=== PATIENT | female | born 1990 | race Caucasian/White ===

== ENCOUNTER 2017-09-26 06:56 | Inpatient (IN) | payer OTHER ==
[2017-09-26] MEDS ORDERED: Misoprostol 100 MCG Tab VAG ONE (07:12)
[2017-09-26] MEDS ORDERED: Misoprostol 25 MCG (1/4 of 100 MCG) Tab ONE (07:28)
[2017-09-26] MEDS ORDERED: Sodium Chloride 0.9% 10 ML Syringe FLUSH PRN (12:00)
[2017-09-26] MEDS: Lactated Ringers 1,000 ML IV SCH ×2 (13:05→21:08)
--- NOTE | 2017-09-26 20:31 | PCM.LDHP ---
L&D History of Present Illness - General Date of Service: 09/26/17 Admit Problem/Dx: Patient Status Order with Admit Dx/Problem 09/26/17 07:00 Admission Status [Patient Status] [ADT] Routine Admission Diagnosis/Problem Admission Diagnosis/Problem - History of Present Illness Introduction:: 26 yo primigravida admitted for induction of labor.No contractions.She is 40w5d.Unremarkable . 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 L&D Exam - Exam Exam: See Below - Vital Signs Vital Signs: Last Vital Signs Temp 98 F 09/26/17 07:20 Pulse 66 09/26/17 16:37 Resp 18 09/26/17 14:15 BP 128/77 09/26/17 16:17 Pulse Ox 99 09/26/17 07:12 Weight: 77.111 kg - OB Specific Contraction Duration (sec): 40-70 Contraction Frequency (min): 1-3 Contraction Intensity: Mild - Bunn Score Bunn Score Cervix Position: Posterior Bunn Score Consistency: Soft Bunn Score Effacement: 0-30% Bunn Score Dilation: 1-2 cm Bunn Score 's Station: -1 ,0 Bunn Score Total: 5 - Exam General: Alert, Oriented HEENT: PERRLA, Conjunctiva Clear, EACs Clear, EOMI, Hearing Intact, Mucosa Moist & [place], Nares Patent, Normal Nasal Septum, Posterior Pharynx Clear, TMs Clear Neck: Supple, Trachea Midline Lungs: Clear to Auscultation, Normal Respiratory Effort Cardiovascular: Regular Rate, Regular Rhythm GI/Abdominal Exam: Normal Bowel Sounds, Soft, Non-Tender, No Organomegaly, No Distention, No Abnormal Bruit, No Mass, Pelvis Stable Rectal Exam: Normal Exam, Normal Rectal Tone Genitourinary: Normal external exam, Normal bimanual exam, Normal speculum exam Back Exam: Normal Inspection, Full Range of Motion Extremities: Normal Inspection, Normal Range of Motion, Non-Tender, No Pedal Edema, Normal Capillary Refill Skin: Warm, Dry, Intact Neurological: Cranial Nerves Intact, Reflexes Equal Bilateral Psychiatric: Alert, Normal Affect, Normal Mood - Problem List (1) Term SNOMED Code(s): 77494266 ICD Code: Z34.80 - ENCOUNTER FOR SUPRVSN OF NORMAL , UNSP TRIMESTER Status: Acute Current Visit: Yes (2) Post term at 41 weeks gestation SNOMED Code(s): 596994111 ICD Code: O48.0 - POST-TERM ; Z3A.41 - 41 WEEKS GESTATION OF Status: Acute Current Visit: Yes (3) Encounter for induction of labor SNOMED Code(s): 584353525 ICD Code: Z34.90 - ENCNTR FOR SUPRVSN OF NORMAL , UNSP, UNSP TRIMESTER Status: Acute Current Visit: Yes Problem List Initiated/Reviewed/Updated: Yes Orders Last 24hrs: Active Orders 24 hr Category Date Time Status Admission Status [Patient Status] [ADT] Routine ADT 09/26/17 07:00 Active Communication Order [RC] ASDIRECTED Care 09/26/17 07:12 Active Communication Order [RC] ASDIRECTED Care 09/26/17 07:12 Active Communication Order [RC] ASDIRECTED Care 09/26/17 07:12 Active Communication Order [RC] ASDIRECTED Care 09/26/17 07:12 Active Communication Order [RC] ROUTINE Care 09/26/17 07:12 Active Notify Provider [RC] PRN Care 09/26/17 07:12 Active Notify Provider [RC] STAT Care 09/26/17 07:12 Active Notify Provider [RC] STAT Care 09/26/17 12:00 Active Vital Signs [RC] PER UNIT ROUTINE Care 09/26/17 07:12 Active Lactated Ringers [Ringers, Lactated] 1,000 ml Med 09/26/17 12:00 Active IV ASDIRECTED Oxytocin/Normal Saline [Pitocin in NS 20 Units/1,000 ML Med 09/26/17 12:00 Active ] 20 unit in 1,000 ml IV TITRATE Sodium Chloride 0.9% [Saline Flush] Med 09/26/17 12:00 Active 10 ml FLUSH ASDIRECTED PRN Peripheral IV Insertion Adult [OM.PC] Urgent Oth 09/26/17 12:00 Ordered Medication Orders Lactated Ringer's (Ringers, Lactated) 1,000 mls @ 125 mls/hr IV ASDIRECTED CHAD Last Admin: 09/26/17 13:05 Dose: 125 mls/hr Oxytocin/Sodium Chloride (Pitocin In Ns 20 Units/1,000 Ml) 20 unit in 1,000 mls @ 6 mls/hr IV TITRATE CHAD; Protocol Last Titration: 09/26/17 20:10 Dose: 10 munits/min, 30 mls/hr Titration: 09/26/17 19:02 Dose: 8 munits/min, 24 mls/hr Titration: 09/26/17 16:35 Dose: 7 munits/min, 21 mls/hr Titration: 09/26/17 16:15 Dose: 8 munits/min, 24 mls/hr Titration: 09/26/17 13:40 Dose: 4 munits/min, 12 mls/hr Admin: 09/26/17 13:05 Dose: 2 munits/min, 6 mls/hr Sodium Chloride (Saline Flush) 10 ml FLUSH ASDIRECTED PRN PRN Reason: Keep Vein Open Last Admin: 09/26/17 13:07 Dose: 10 ml Assessment/Plan Comment:: Cytotec inductionof labor then augment with Pit
[2017-09-27] MEDS ORDERED: Misoprostol 25 MCG (1/4 of 100 MCG) Tab VAG ONE (07:30)
[2017-09-27] MEDS: Lactated Ringers 1,000 ML IV SCH ×3 (12:37→22:20)
--- NOTE | 2017-09-27 20:03 | PCM.PNLD ---
Labor Progress Note - VS & Meds Vital Signs: Last Vital Signs Temp 98 F 09/27/17 19:29 Pulse 55 L 09/27/17 19:30 Resp 18 09/27/17 08:00 BP 132/85 09/27/17 19:30 Pulse Ox 98 09/27/17 18:50 Active Medications: Current Medications Lactated Ringer's (Ringers, Lactated) 1,000 mls @ 125 mls/hr IV ASDIRECTED CHAD Last Admin: 09/27/17 14:28 Dose: 125 mls/hr Oxytocin/Sodium Chloride (Pitocin In Ns 20 Units/1,000 Ml) 20 unit in 1,000 mls @ 6 mls/hr IV TITRATE CHAD; Protocol Last Titration: 09/27/17 16:52 Dose: 8 munits/min, 24 mls/hr Sodium Chloride (Saline Flush) 10 ml FLUSH ASDIRECTED PRN PRN Reason: Keep Vein Open Last Admin: 09/26/17 13:07 Dose: 10 ml Discontinued Medications Misoprostol (Cytotec) 25 mcg VAG ONETIME ONE Stop: 09/26/17 07:13 Last Admin: 09/26/17 07:53 Dose: 25 mcg Misoprostol (Cytotec) Confirm Administered Dose 25 mcg .ROUTE .STK-MED ONE Stop: 09/26/17 07:29 Last Admin: 09/26/17 07:53 Dose: Not Given Misoprostol (Cytotec) 25 mcg VAG ONETIME ONE Stop: 09/27/17 07:31 Last Admin: 09/27/17 08:24 Dose: 25 mcg - Uterine Contractions Uterine Monitoring Mode: External [place] Contraction Frequency (min): 2-3 Contraction Duration (sec): 80-100 Contraction Intensity: Moderate Uterine Resting Tone: Soft - Monitoring Heart Rate (FHR) Variability: Moderate (6-25 bmp) Accelerations: Present, 15x15 Decelerations: None Strip Review: Category I - Vaginal Exam Dilation (cm): 4 Effacement (Percent): 50 Station: 0 Cervical Position: Midposition Sterile Vaginal Exam Performed By: Pritesh Batista - Labor Progress (Free Text) Labor Progress: AROM performed. Will continue with augmentation of labior by Pitocin
[2017-09-27] MEDS: Nalbuphine 10 MG/1 ML Vial IVPUSH PRN (23:21)
[2017-09-28] MEDS: Nalbuphine 10 MG/1 ML Vial IVPUSH PRN (02:13)
[2017-09-28] MEDS: Lactated Ringers 1,000 ML IV SCH ×2 (03:16→08:57)
[2017-09-28] MEDS ORDERED: fentaNYL 300 MCG in Ropivacaine 200 ML EPIDUR ONE (03:40)
[2017-09-28] MEDS ORDERED: fentaNYL 100 MCG/2 ML SDV EPIDUR ONE ×2 (03:40→10:30)
[2017-09-28] MEDS ORDERED: Promethazine 6.25 MG in Sodium Chloride 0.9% 50 ML IV PRN (04:55)
[2017-09-28] MEDS ORDERED: diphenhydrAMINE 50 MG/ML SDV IV PRN (04:55)
[2017-09-28] MEDS ORDERED: Ondansetron 4 MG/2 ML SDV IVPUSH PRN (04:55)
[2017-09-28] MEDS ORDERED: Promethazine 12.5 MG in Sodium Chloride 0.9% 50 ML IV PRN (04:55)
[2017-09-28] MEDS ORDERED: ePHEDrine 50 MG/ML SDV IVPUSH ONE (04:55)
[2017-09-28] MEDS ORDERED: Naloxone 0.4 MG/ML SDV IVPUSH PRN (04:55)
[2017-09-28] MEDS ORDERED: Lactated Ringers 500 ML IV SCH (05:00)
[2017-09-28] MEDS ORDERED: Citric Acid/Sodium Citrate Solution 30 ML Cup PO ONE (09:45)
[2017-09-28] MEDS ORDERED: Scopolamine 1.5 MG Transdermal Patch TRDERM ONE (09:46)
[2017-09-28] MEDS ORDERED: ceFAZolin 1,000 MG VIAL IVPUSH ONE (10:06)
[2017-09-28] MEDS ORDERED: Azithromycin 500 MG in Sodium Chloride 0.9% 250 ML IV ONE ×2 (10:06→10:30)
--- NOTE | 2017-09-28 10:10 | PCM.PNLD ---
Labor Progress Note - VS & Meds Vital Signs: Last Vital Signs Temp 98.6 F 09/28/17 04:00 Pulse 73 09/27/17 23:21 Resp 16 09/28/17 04:00 BP 149/90 H 09/27/17 23:05 Pulse Ox 99 09/28/17 04:55 Active Medications: Current Medications Cefazolin Sodium (Ancef) 2,000 mg IVPUSH ONETIME ONE Stop: 09/28/17 10:07 Diphenhydramine HCl (Benadryl) 25 mg IV ONETIME PRN PRN Reason: Pruritus Lactated Ringer's (Ringers, Lactated) 1,000 mls @ 125 mls/hr IV ASDIRECTED CHAD Last Admin: 09/28/17 08:57 Dose: 125 mls/hr Oxytocin/Sodium Chloride (Pitocin In Ns 20 Units/1,000 Ml) 20 unit in 1,000 mls @ 6 mls/hr IV TITRATE CHAD; Protocol Last Titration: 09/28/17 08:50 Dose: 4 munits/min, 12 mls/hr Lactated Ringer's (Ringers, Lactated) 500 mls @ 999 mls/hr IV .BOLUS CHAD Promethazine HCl 6.25 mg/ (Sodium Chloride) 50.25 mls @ 200 mls/hr IV Q4H PRN PRN Reason: Nausea/Vomiting Promethazine HCl 12.5 mg/ (Sodium Chloride) 50.5 mls @ 200 mls/hr IV Q6H PRN PRN Reason: Nausea/Vomiting Azithromycin 500 mg/ Sodium (Chloride) 250 mls @ 250 mls/hr IV ONETIME ONE Stop: 09/28/17 11:05 Nalbuphine HCl (Nubain) 10 mg IVPUSH Q3H PRN PRN Reason: Pain Last Admin: 09/28/17 02:13 Dose: 10 mg Naloxone HCl (Narcan) 0.1 mg IVPUSH ONETIME PRN PRN Reason: Sedation Ondansetron HCl (Zofran) 4 mg IVPUSH Q6H PRN PRN Reason: Nausea/Vomiting Sodium Chloride (Saline Flush) 10 ml FLUSH ASDIRECTED PRN PRN Reason: Keep Vein Open Last Admin: 09/26/17 13:07 Dose: 10 ml Discontinued Medications Citric Acid/Sodium Citrate (Bicitra Solution) 30 ml PO ONETIME ONE Stop: 09/28/17 09:46 Last Admin: 09/28/17 10:03 Dose: 30 ml Ephedrine Sulfate (Ephedrine Sulfate) 5 mg IVPUSH ONETIME ONE Stop: 09/28/17 04:56 Misoprostol (Cytotec) 25 mcg VAG ONETIME ONE Stop: 09/26/17 07:13 Last Admin: 09/26/17 07:53 Dose: 25 mcg Misoprostol (Cytotec) Confirm Administered Dose 25 mcg .ROUTE .STK-MED ONE Stop: 09/26/17 07:29 Last Admin: 09/26/17 07:53 Dose: Not Given Misoprostol (Cytotec) 25 mcg VAG ONETIME ONE Stop: 09/27/17 07:31 Last Admin: 09/27/17 08:24 Dose: 25 mcg Scopolamine (Transderm-Scop) 1.5 mg TRDERM ONETIME ONE Stop: 09/28/17 09:47 Last Admin: 09/28/17 10:04 Dose: 1.5 mg - Uterine Contractions Uterine Monitoring Mode: External [place] Contraction Frequency (min): 2-6 Contraction Duration (sec): 60 Contraction Intensity: Moderate Uterine Resting Tone: Soft - Monitoring Heart Rate (FHR) Variability: Moderate (6-25 bmp) Accelerations: Present, 15x15 Decelerations: Early Strip Review: Category I - Vaginal Exam Dilation (cm): ant lip Effacement (Percent): 100 Station: Cervical Position: Anterior Sterile Vaginal Exam Performed By: Pritesh Batista Vaginal Exam Comment: 10 cm dilatation,100% effaced - Labor Progress (Free Text) Labor Progress: Pushing for 2 hrs,Little progress. Discussed options with patient and spouse at bedside.Risks and benefits of vacuum delivery was reviewed,patient declined and elected for a primary c sections. Risks of those were reviewed,and she accepted
[2017-09-28] MEDS ORDERED: ceFAZolin 2 GM in Premix Bag 1 BAG IV ONE (10:15)
[2017-09-28] MEDS ORDERED: Morphine PF 10 MG/10 ML SDV EPIDUR ONE (10:30)
[2017-09-28] MEDS ORDERED: Propofol 200 MG/20 ML SDV IV ONE (10:30)
[2017-09-28] MEDS ORDERED: Oxytocin 10 Units/1 ML SDV IV ONE ×2 (10:30)
[2017-09-28] MEDS ORDERED: Dexamethasone 4 MG/ML 5 ML MDV IVPUSH ONE (10:30)
[2017-09-28] MEDS ORDERED: Lactated Ringers 1,000 ML IV ONE (10:30)
[2017-09-28] MEDS ORDERED: diphenhydrAMINE 50 MG/ML SDV IVPUSH ONE (10:30)
[2017-09-28] MEDS ORDERED: Ondansetron 4 MG/2 ML SDV IVPUSH ONE (10:30)
[2017-09-28] MEDS ORDERED: Ketorolac 30 MG/ML SDV IVPUSH ONE (10:30)
[2017-09-28] MEDS ORDERED: Sodium Bicarbonate 8.4% 50 MEQ/50 ML Syringe ONE (10:30)
[2017-09-28] MEDS ORDERED: Midazolam 1 MG/ML 2 ML SDV IV ONE (10:30)
[2017-09-28] MEDS ORDERED: Lidocaine 2% 10 ML Amp EPIDUR ONE (10:30)
[2017-09-28] MEDS ORDERED: Magnesium Sulfate/Water 4 GM in Premix Bag 1 BAG IV ONE ×2 (11:22→11:30)
[2017-09-28] MEDS ORDERED: Magnesium Sulfate/Water 50 ML IV ONE (12:30)
--- NOTE | 2017-09-28 15:32 | DISCH ---
DISCHARGE DATE: 09/28/2017 REASON FOR ADMISSION: Induction of labor at 41 weeks and 5 days. REASON FOR TRANSFER: 1. Status post lower uterine segment section, primary, due to failure to descend. 2. Dyskinesia and restlessness of unknown reason. 3. Elevated blood pressure. BRIEF HISTORY AND HOSPITAL COURSE: A 26-year-old female admitted initially for induction of labor, which was performed between and . She was complete on the morning and pushed for 2 hours without success. A decision was made to go for the lower uterine segment primary section. Immediately before closure of the skin, she developed restlessness, akathisia, and seizure- like activities, necessitating several measures, (please see separate note dictated today). A decision was reached to transfer to [facility] for further treatment and she was transferred by air ambulance in stable condition. Please note that I spent more than 35 minutes in the transfer of Haritha. /[id number] JAMIL/MARIAH LEWIS
--- NOTE | 2017-10-01 07:09 | PN ---
DATE SEEN: 09/28/2017 The patient developed complication right at the closing of the skin during the primary section. Her vital signs were stable throughout, although she had chills prior to going to the OR. Just before we closed, she began to complain of feeling dizzy and not feeling right. Immediately afterwards, she started moving restlessly on the table, jerking her arms and legs and having dry heaves. At this point, additional help was called for and Dr. Segura was still in the room and Elsy, the additional anesthetic nurse, was attendant. The patient's airway was secured, non-rebreather mask placed, two IV large-bore lines were present. At this time, Pitocin and a bolus of LR were continued. Her blood pressure was slightly high in the 170 systolic at one point, and I ordered for a bolus of magnesium 4 g. Versed and then Valium and eventual propofol given to control her restlessness. Although she remained alert and was responsive to commands, she was still agitated and showing signs of akathisia. A diagnosis of acute amniotic fluid embolus was entertained and so was extrapyramidal side effects of Zofran or scopolamine patch, PE, or possibly preeclampsia . Following standard advanced life support protocols, the patient was kept on the monitor, IV fluid was continued for support. I called [facility] and spoke with the ANTHROPOMETRIST and ER physician and secured a transfer request and an ambulance on the way. Benztropine 2 mg IV was given to see if it could control the extrapyramidal side effects. In addition, 50 mg of Benadryl was given. In total, a total 4 mg of Versed and 2 mg of IV Valium given. Propofol was used as needed as a drip. After the 4 g of magnesium sulfate bolus, we continued the drip 2 g/hour upon the recommendation of Dr. Jerome, ANTHROPOMETRIST at [facility]. I updated the family at the bedside and they are in agreement with transfer for further care and to determine the cause of her symptoms, which is not clear at the time of transfer. Her vital signs remained relatively stable throughout this procedure, and just a few minutes before transfer, she was noted to have a high blood pressure in the 180s systolic. She was arousable and could follow commands. Her labs that were performed at that time included CBC that showed a normal hemoglobin but a white cell count of 18,000 with a mild left shift. D-dimer of 7.14. BNP of 250. Troponin was less than 0.017. Platelets were within reference range. The urine was noted to be clear in the urinary bladder. In total, I spent 1 hour and 45 minutes in critical care of this patient up until she was loaded to the air transfer to [facility]. The family was continuously updated at the bedside. /[id number] TN/MODL
--- NOTE | 2017-10-01 07:13 | OR ---
DATE OF OPERATION: 09/28/2017 SURGEON: Pritesh Batista MD PROCEDURE: Lower uterine segment section. MOTION GRAPHICS ARTIST: Dr. Segura. PREOPERATIVE DIAGNOSES: 1. Intrauterine at 41 weeks. 2. Arrest of descent. POSTOPERATIVE DIAGNOSES: 1. Intrauterine gestation at 41 weeks, 2nd stage of labor. 2. Arrest of descent. 3. Delivery of a viable female . 4. Severe restlessness and akathisia of unknown reason. ANESTHESIA: Epidural. COMPLICATIONS: Restlessness, seizure-like activities. There was extended uterine tear. ESTIMATED BLOOD LOSS: 800 mL. DRAINS: Ramirez catheter to the urinary bladder. SPECIMENS: Cord blood for routine testing and placenta. OPERATIVE FINDINGS: A viable female with score of 9 and 9. Weight is 5 pounds 11 ounces, delivered in an OA presentation. The cord contained 3- vessels, was normal and anterior fundal placenta was noted. Amniotic fluid was clear. The uterus, fallopian tubes, and ovaries were normal. DESCRIPTION OF THE OPERATION: The patient accepted the risks and benefits including anesthetic complications, bleeding, infection, and agreed to proceed. She was brought to the operating suite in stable condition and epidural anesthesia, which was already on board and an indwelling catheter in place in the bladder. The patient was placed in supine position in the operating room table and rolled to her left side with a wedge. The abdomen was prepped and draped in a standard fashion for section. After testing with Allis forceps, to ensure adequate anesthesia, the surgery was commenced. I had counseled the patient and extensively regarding the risks of the surgery including but not limited to stroke, embolus, phlebitis, pain, infection, hemorrhage requiring transfusion, as well as injury to the infant and internal organs. An alternative operative vaginal delivery route was provided, but the patient declined. The patient was aware of the postoperative morbidity issues and recovery time frames. With a scalpel, a Pfannenstiel incision was made and dissection was carried down sharply through the subcutaneous tissues and fascia in a transverse plane with a scalpel and electrocautery and curved Jones scissors. The fascia was sharply freed up superiorly and inferiorly from the underlying rectus muscles which was bluntly and sharply divided. The peritoneum was entered carefully with clear space using a curved hemostat and Metzenbaum. The Metzenbaum were used to extend the incision vertically. A retractor and blade were placed, a bladder flap was created by incising transversely through the peritoneum and the vesicouterine fold, then bluntly dissecting the bladder distally. With a scalpel, a low transverse hysterotomy was commenced. The serosa and myometrium were scored with the scalpel and the uterine cavity was entered bluntly by pulling in a cephalad caudad fashion using the operators fingers. An intrauterine hand was placed on the head, which was lodged in the pelvis, was raised to the uterine incision with some mild difficulty. With fundal pressure, she was delivered without difficulty. The nasopharynx was cleared and oropharynx suctioned. The cord was doubly clamped and transected. The was then handed to the nursery personnel. She was noted to be vigorous. score of 9 and 9 were recorded subsequently. Pitocin was started at that time. The placenta was removed after the uterus was exteriorized. The uterine cavity was curetted and a dry sponge was used to free the remaining membranes. A large uterine incision extending down to the lateral aspect was noted. This was grasped with [place] clamps. The uterus with massage and Pitocin began to firm up normally. The uterine incision was closed in 2 layers with 0 Vicryl sutures. The first suture was placed to the endometrium and myometrium. The second suture was placed through the endopelvic fascia and imbricated the previous suture. There was noted some bleeding in the middle of the incision and a [id number] was placed and some Surgicel was placed between the uterus and the urinary bladder. The uterus was then returned to the maternal abdomen and the pelvis, and gutters were irrigated and suctioned and cleared of all blood clots and amniotic fluid. The uterine incision was reinspected to assure hemostasis. Once we were satisfied with hemostasis, attention was turned to the closure of the abdominal incision. The rectus fascia was closed with the 0 Vicryl and subcutaneous tissue with 3-0 plain sutures. The skin incision was then closed by duncan. During the time of closing of the subcutaneous tissue, the patient developed restlessness initially complained of dizziness and then started showing signs of agitation and severe restlessness, moving arms and legs uncontrollably. Please see a separate note for a complete discussion or dictation of this event. Estimated blood loss 800 mL. There were no other issues after that. Please note that the patient received azithromycin and 2 g of Ancef prior to the incision. /[id number] JAMIL/MARIAH
== END 2017-09-28 13:10 | DRG 766 ==
LOC: FB.OB 06:56 → OBSVTOIN 09-27 20:00
PROVIDERS: ADMIT Family Medicine; ATTEND Family Medicine
PROC: 10D00Z1 Extraction of Products of Conception, Low, Open Approach (ICD-10-PCS; principal; 2017-09-28)
PROC: 10907ZC Drainage of Amniotic Fluid, Therapeutic from Products of Conception, Via Natural or Artificial Opening (ICD-10-PCS; 2017-09-28)
PROC: 3E033VJ Introduction of Other Hormone into Peripheral Vein, Percutaneous Approach (ICD-10-PCS; 2017-09-28)
DX: O62.0 Primary inadequate contractions (principal); O48.0 Post-term pregnancy; Z3A.40 40 weeks gestation of pregnancy; O99.214 Obesity complicating childbirth; E66.9 Obesity, unspecified; Z68.30 Body mass index [BMI] 30.0-30.9, adult; Z37.0 Single live birth; O90.89 Other complications of the puerperium, not elsewhere classified; G24.9 Dystonia, unspecified; R03.0 Elevated blood-pressure reading, without diagnosis of hypertension
CPT/HCPCS: 36415; 51702; 59409; 80053; 83880; 84484; 85025; 85049; 85379; 85610; A9270-GY; J0456; J0515; J0690; J1100; J1200; J1885; J2250; J2270; J2300; J2405; J2590; J2704; J2795; J3010; J3475; J7050; J7120

== ENCOUNTER 2018-09-18 07:17 | Inpatient (IN) | payer OTHER ==
[2018-09-18] MEDS ORDERED: Sodium Chloride 0.9% 10 ML Syringe FLUSH PRN (07:46)
[2018-09-18] MEDS ORDERED: Scopolamine 1.5 MG Transdermal Patch TOP ONE (07:46)
[2018-09-18] MEDS ORDERED: Citric Acid/Sodium Citrate Solution 30 ML Cup PO ONE (07:46)
[2018-09-18] MEDS ORDERED: Citric Acid/Sodium Citrate Solution 30 ML Cup ONE (07:49)
[2018-09-18] MEDS ORDERED: Lactated Ringers 1,000 ML IV SCH (08:00)
--- NOTE | 2018-09-18 09:23 | PCM.LDHP ---
L&D History of Present Illness - General Date of Service: 09/18/18 Admit Problem/Dx: Patient Status Order with Admit Dx/Problem 09/18/18 07:44 Admission Status [Patient Status] [ADT] Routine 09/18/18 07:46 Patient Status [ADT] Routine Admission Diagnosis/Problem Admission Diagnosis/Problem and not yet delivered Source of Information: Patient History Limitations: Reports: No Limitations - History of Present Illness Introduction:: Haritha is a 27 yo at 35 weeks and 6 days gestation.She came in with uterine contractions for a few hours. She was found to be complete,with membranes intact.Her due date is 10/17. has been uneventful. She had a previous C section last year due to failure to progress. Location, : Reports: Uterus Quality: Reports: Ache Improves with: Reports: None - Related Data Allergies/Adverse Reactions: Allergies Allergy/AdvReac Type Severity Reaction Status Date / Time scopolamine Allergy Severe Other Verified 09/11/18 13:41 ondansetron [From Zofran] AdvReac Severe Other Verified 10/01/17 17:00 Home Medications: Home Meds Pnv No.28/Ferrous Fumarate/FA [Theranatal Core Nutrition] 1 each PO DAILY [History] Past Medical History - Past Health History Medical/Surgical History: Denies Medical/Surgical History HEENT History: Reports: Impaired Vision Other HEENT History: Eyeglasses Cardiovascular History: Reports: None 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 L&D Exam - Exam Exam: See Below - OB Specific Contraction Intensity: Moderate to Strong Movement: Active Heart Tones: Present Heart Rate (FHR) Variability: Moderate (6-25 bmp) Presentation: Vertex - Bunn Score Bunn Score Cervix Position: Anterior Bunn Score Consistency: Soft Bunn Score Effacement: >80% Bunn Score Dilation: > 5 cm - Exam General: Alert, Oriented HEENT: PERRLA, Conjunctiva Clear, EACs Clear, EOMI, Hearing Intact, Mucosa Moist & [place], Nares Patent, Normal Nasal Septum, Posterior Pharynx Clear, TMs Clear Neck: Supple, Trachea Midline Lungs: Clear to Auscultation, Normal Respiratory Effort Cardiovascular: Regular Rate, Regular Rhythm GI/Abdominal Exam: Normal Bowel Sounds, Soft, Non-Tender, No Organomegaly, No Distention, No Abnormal Bruit, No Mass, Pelvis Stable Rectal Exam: Normal Exam, Normal Rectal Tone Genitourinary: Normal external exam, Normal bimanual exam, Normal speculum exam Back Exam: Normal Inspection, Full Range of Motion Extremities: Normal Inspection, Normal Range of Motion, Non-Tender, No Pedal Edema, Normal Capillary Refill Skin: Warm, Dry, Intact Neurological: Cranial Nerves Intact, Reflexes Equal Bilateral Psychiatric: Alert, Normal Affect, Normal Mood - Patient Data Lab Results Last 24 hrs: Laboratory Results - last 24 hr 09/18/18 09/18/18 Range/Units 07:55 07:55 WBC 11.9 (4.5-12.0) X10-3/uL RBC 4.14 (3.23-5.20) x10(6)uL Hgb 12.8 (11.5-15.5) g/dL Hct 36.7 (30.0-51.3) % MCV 88.7 (80-96) fL MCH 31.0 (27.7-33.6) pg MCHC 34.9 (32.2-35.4) g/dL RDW 12.3 (11.5-15.5) % Plt Count 116 L (125-369) X10(3)uL MPV 10.1 (7.4-10.4) fL Neut % (Auto) 76.6 (46-82) % Lymph % (Auto) 12.9 L (13-37) % [place] % (Auto) 10.1 (4-12) % Eos % (Auto) 0 L (1.0-5.0) % Baso % (Auto) 0 (0-2) % Neut # (Auto) 9.2 H (1.6-8.3) # Lymph # (Auto) 1.5 (0.6-5.0) # [place] # (Auto) 1.2 (0.0-1.3) # Eos # (Auto) 0.0 (0.0-0.8) # Baso # (Auto) 0.0 (0.0-0.2) # Blood Type O POSITIVE Gel Antibody Screen Negative Result Diagrams: 09/18/18 07:55 - Problem List (1) labor Status: Acute Current Visit: Yes Qualifiers: labor trimester: third trimester (2) H/O section SNOMED Code(s): 022599706 ICD Code: Z98.891 - HISTORY OF UTERINE SCAR FROM PREVIOUS SURGERY Status: Chronic Current Visit: Yes Problem List Initiated/Reviewed/Updated: Yes Orders Last 24hrs: Active Orders 24 hr Category Date Time Status Admission Status [Patient Status] [ADT] Routine ADT 09/18/18 07:44 Active Patient Status [ADT] Routine ADT 09/18/18 07:46 Active Non Stress Test [RC] Click to Edit Care 09/18/18 07:46 Active Procedure Site Prep Instruct [RC] ASDIRECTED Care 09/18/18 07:46 Active RT Incentive Spirometry [RC] PER UNIT ROUTINE Care 09/18/18 07:46 Active Vital Signs [RC] PER UNIT ROUTINE Care 09/18/18 07:46 Active PATIENT RETYPE [BBK] Routine Lab 09/18/18 07:55 Results TYPE AND SCREEN [BBK] Routine Lab 09/18/18 07:55 Results Lactated Ringers [Ringers, Lactated] 1,000 ml Med 09/18/18 08:00 Active IV .BOLUS Remove Patch Med 09/21/18 07:46 Pending 1 ea TRDERM BEDTIME Scopolamine [Transderm-Scop] Med 09/18/18 07:46 Pending 1.5 mg TOP ONETIME ONE Sodium Chloride 0.9% [Saline Flush] Med 09/18/18 07:46 Active 10 ml FLUSH ASDIRECTED PRN Peripheral IV Insertion Adult [OM.PC] Routine Oth 09/18/18 07:46 Ordered Schedule Procedure [COMM] Per Unit Routine Oth 09/18/18 07:46 Ordered Resuscitation Status Routine Resus Stat 09/18/18 07:46 Ordered Medication Orders Lactated Ringer's (Ringers, Lactated) 1,000 mls @ 999 mls/hr IV .BOLUS CHAD Miscellaneous Information (Remove Patch) 1 ea TRDERM BEDTIME CHAD Scopolamine (Transderm-Scop) 1.5 mg TOP ONETIME ONE Stop: 09/18/18 07:47 Sodium Chloride (Saline Flush) 10 ml FLUSH ASDIRECTED PRN PRN Reason: Keep Vein Open Assessment/Plan Comment:: Patient is complete,but would like to proceed with a section,due to previous scar.She does not want TOLAC. I will proceed with c section per patient wishes.
[2018-09-18] MEDS ORDERED: ePHEDrine 50 MG/ML SDV IVPUSH PRN (09:27)
[2018-09-18] MEDS ORDERED: Naloxone 0.4 MG/ML SDV IVPUSH PRN ×2 (09:27→09:45)
[2018-09-18] MEDS ORDERED: diphenhydrAMINE 50 MG/ML SDV IVPUSH PRN (09:27)
[2018-09-18] MEDS ORDERED: Ketorolac 15 MG/ML SDV IVPUSH PRN (09:45)
[2018-09-18] MEDS ORDERED: Nalbuphine 10 MG/1 ML Vial IVPUSH PRN (09:45)
[2018-09-18] MEDS ORDERED: Morphine 2 MG/ML Syringe IVPUSH PRN (09:45)
[2018-09-18] MEDS: Lactated Ringers 1,000 ML IV SCH ×3 (09:50→21:54)
--- NOTE | 2018-09-18 11:16 | OR ---
DATE OF OPERATION: 09/18/2018 SURGEON: Pritesh Batista MD Site Planner: Dr Zacarias PROCEDURE: Repeat section, low transverse. PREOPERATIVE DIAGNOSES: 1. labor. 2. Previous . POSTOPERATIVE DIAGNOSES: 1. labor. 2. Repeat lower uterine segment section. ANESTHESIA: Epidural. ESTIMATED BLOOD LOSS: 500 mL. COMPLICATIONS: None. CONDITION: Stable. DRAINS: Ramirez catheter. INDICATIONS: This is a 27-year-old female who came in at term complete at 35 weeks and 6 days. She had a previous a year ago due to failure to progress. She expressed interest in a repeat section. PROCEDURE DETAILS: The patient was taken to the operating room where epidural anesthesia was placed without difficulty. She was prepped and draped in the usual sterile fashion for the procedure. After confirming adequate anesthesia, the scalpel was used to make a transverse incision along the previous scar. This was carried down to the level of the fascia, which was also bluntly and sharply dissected from the underlying rectus fascia. The rectus muscles were in the midline exposing the peritoneum. The peritoneum was entered bluntly. After placing a bladder blade, the vesicouterine bladder flap was placed and extended digitally. An incision using a scalpel was made around the lower uterine segment in a transverse way. This was extended digitally and by traction. The baby's head was delivered and the rest of the baby delivered without difficulty. The cord was cut and clamped. The baby was handed to the awaiting nurses vigorous. Attention was turned to the mother, where cord blood was obtained and the placenta was manually extracted. The uterus was exteriorized and cleaned of all debris. It was closed in 2 layers to achieve adequate hemostasis. It was returned to the abdomen. After irrigation, the rectus fascia was closed in a running 1-0 stitch. Thereafter, the skin was closed with 3-0 running stitch with no complications. The patient got 2 g of Ancef preoperatively and she was stable after the procedure. The baby's scores were 8 and 9 at 1 and [address] Zacarias was the behavioral modification assistant of this procedure and I was the primary surgeon. She was transferred to the recovery room in stable condition. /[id number] JAMIL/MARIAH LEWIS
[2018-09-18] MEDS ORDERED: Lactated Ringers 1,000 ML IV ONE (14:13)
[2018-09-18] MEDS ORDERED: ceFAZolin 1 GM Vial IVPUSH ONE (14:13)
[2018-09-18] MEDS ORDERED: Phenylephrine 1% 10 MG/ML SDV IV ONE (14:13)
[2018-09-18] MEDS ORDERED: Ketorolac 30 MG/ML SDV IVPUSH ONE (14:13)
[2018-09-18] MEDS ORDERED: ePHEDrine 50 MG/ML SDV IV ONE (14:13)
[2018-09-18] MEDS ORDERED: Dexamethasone 4 MG/ML 5 ML MDV IVPUSH ONE (14:13)
[2018-09-18] MEDS ORDERED: Morphine PF 10 MG/10 ML SDV INJECT ONE (14:13)
[2018-09-18] MEDS ORDERED: Oxytocin 10 Units/1 ML SDV IV ONE (14:13)
[2018-09-19] MEDS: Lactated Ringers 1,000 ML IV SCH ×2 (01:55→05:44)
[2018-09-19] MEDS ORDERED: Acetaminophen/HYDROcodone 325-5 MG Tab PO PRN (08:19)
--- NOTE | 2018-09-19 08:22 | PCM.PN ---
- General Info Date of Service: 09/19/18 Subjective Update: Doing well. Functional Status: Reports: Pain Controlled, Tolerating Diet - Review of Systems General: Reports: No Symptoms HEENT: Reports: No Symptoms Pulmonary: Reports: No Symptoms Cardiovascular: Reports: No Symptoms Gastrointestinal: Reports: No Symptoms Genitourinary: Reports: No Symptoms Musculoskeletal: Reports: No Symptoms - Patient Data Vitals - Most Recent: Last Vital Signs Temp 98.3 F 09/18/18 22:00 Pulse 64 09/19/18 06:30 Resp 18 09/19/18 06:30 BP 125/74 09/19/18 06:30 Pulse Ox 95 09/19/18 06:30 Weight - Most Recent: 81.647 kg I&O - Last 24 Hours: Intake & Output 09/18/18 09/19/18 09/19/18 22:59 06:59 14:59 Intake Total 3181 1867 Output Total 1200 1550 Balance 1981 317 Lab Results Last 24 Hours: Laboratory Results - last 24 hr 09/18/18 09/19/18 Range/Units 07:55 06:15 WBC 13.0 H (4.5-12.0) X10-3/uL RBC 3.21 L (3.23-5.20) x10(6)uL Hgb 9.8 L D (11.5-15.5) g/dL Hct 28.6 L (30.0-51.3) % MCV 89.1 (80-96) fL MCH 30.5 (27.7-33.6) pg MCHC 34.3 (32.2-35.4) g/dL RDW 12.5 (11.5-15.5) % Plt Count 103 L (125-369) X10(3)uL MPV 11.6 H (7.4-10.4) fL Add Manual Diff Yes Neutrophils % (Manual) 83 H (46-82) % Band Neutrophils % 1 (0-6) % Lymphocytes % (Manual) 14 (13-37) % Monocytes % (Manual) 2 L (4-12) % Gel Antibody Screen Negative Med Orders - Current: Current Medications Hydrocodone Bitart/Acetaminophen ([place] 325-5 Mg) 1 tab PO Q6H PRN PRN Reason: Breakthrough Pain Diphenhydramine HCl (Benadryl) 25 mg IVPUSH Q6H PRN PRN Reason: Itching or Nausea Ephedrine Sulfate (Ephedrine Sulfate) 5 mg IVPUSH ASDIRECTED PRN PRN Reason: Other Lactated Ringer's (Ringers, Lactated) 1,000 mls @ 999 mls/hr IV .BOLUS [facility] Last Admin: 09/18/18 07:35 Dose: 999 mls/hr Ibuprofen (Motrin) 600 mg PO Q6H CHAD Morphine Sulfate (Morphine) 2 mg IVPUSH Q1H PRN PRN Reason: Pain Nalbuphine HCl (Nubain) 10 mg IVPUSH Q1H PRN PRN Reason: Pruritus Last Admin: 09/18/18 11:14 Dose: 10 mg Naloxone HCl (Narcan) 0.1 mg IVPUSH ONETIME PRN PRN Reason: Respiratory Depression Naloxone HCl (Narcan) 0.1 mg IVPUSH ONETIME PRN PRN Reason: Oversedation Sodium Chloride (Saline Flush) 10 ml FLUSH ASDIRECTED PRN PRN Reason: Keep Vein Open Discontinued Medications Citric Acid/Sodium Citrate (Bicitra Solution) 30 ml PO ONETIME ONE Stop: 09/18/18 07:47 Last Admin: 09/18/18 08:03 Dose: 30 ml Citric Acid/Sodium Citrate (Bicitra Solution) Confirm Administered Dose 30 ml .ROUTE .STK-MED ONE Stop: 09/18/18 07:50 Last Admin: 09/18/18 12:13 Dose: Not Given Lactated Ringer's (Ringers, Lactated) 1,000 mls @ 250 mls/hr IV ASDIRECTED [facility] Last Admin: 09/19/18 05:44 Dose: 250 mls/hr Ketorolac Tromethamine (Toradol) 15 mg IVPUSH Q6H PRN PRN Reason: Pain Stop: 09/23/18 09:59 - Exam General: Alert HEENT: Pupils Equal Lungs: Clear to Auscultation Cardiovascular: Regular Rate GI/Abdominal Exam: Normal Bowel Sounds Wound/Incisions: Healing Well, Dressing Dry and Intact - Problem List & Annotations (1) labor Status: Acute Current Visit: Yes Qualifiers: labor trimester: third trimester (2) H/O section SNOMED Code(s): 135018811 Code(s): Z98.891 - HISTORY OF UTERINE SCAR FROM PREVIOUS SURGERY Status: Chronic Current Visit: Yes (3) Anemia due to acute blood loss SNOMED Code(s): 023517250 Code(s): D62 - ACUTE POSTHEMORRHAGIC ANEMIA Status: Acute Current Visit: Yes (4) care and examination SNOMED Code(s): 600239526, 938721425 Code(s): Z39.2 - ENCOUNTER FOR ROUTINE FOLLOW-UP Status: Acute Current Visit: Yes (5) Delivery by section SNOMED Code(s): 877834768 Code(s): MAC9691 - Status: Acute Current Visit: Yes - Problem List Review Problem List Initiated/Reviewed/Updated: Yes - My Orders Last 24 Hours: My Active Orders 09/18/18 07:44 Admission Status [Patient Status] [ADT] Routine 09/18/18 07:46 Patient Status [ADT] Routine Sodium Chloride 0.9% [Saline Flush] 10 ml FLUSH ASDIRECTED PRN Peripheral IV Insertion Adult [OM.PC] Routine Schedule Procedure [COMM] Per Unit Routine Resuscitation Status Routine 09/18/18 08:00 Lactated Ringers [Ringers, Lactated] 1,000 ml IV .BOLUS 09/18/18 09:27 Intake and Output [RC] Q8H RT Incentive Spirometry [RC] Q4HWA Vital Signs [RC] Q4H Wound Care [RC] QSHIFT Naloxone [Narcan] 0.1 mg IVPUSH ONETIME PRN diphenhydrAMINE [Benadryl] 25 mg IVPUSH Q6H PRN ePHEDrine [ePHEDrine sulfate] 5 mg IVPUSH ASDIRECTED PRN Assess Lochia [WOMSER] Per Unit Routine 09/18/18 Dinner Regular Diet [DIET] 09/19/18 08:19 Urinary Catheter Removal [RC] Per Unit Routine Acetaminophen/HYDROcodone [Mesa 325-5 MG] 1 tab PO Q6H PRN Peripheral IV Discontinue [OM.PC] Routine 09/19/18 08:30 Ibuprofen [Motrin] 600 mg PO Q6H - Plan Plan:: DC fluids,Ramirez,encourage ambulation. Regular diet.
[2018-09-19] MEDS: Ibuprofen 600 MG Tab PO SCH ×2 (08:46→14:04)
[2018-09-19] MEDS ORDERED: ePHEDrine 50 MG/ML SDV IV ONE (14:13)
[2018-09-19] MEDS ORDERED: Ketorolac 30 MG/ML SDV IVPUSH ONE (14:13)
[2018-09-19] MEDS ORDERED: ceFAZolin 1 GM Vial IVPUSH ONE (14:13)
[2018-09-19] MEDS ORDERED: Phenylephrine 1% 10 MG/ML SDV IV ONE (14:13)
[2018-09-19] MEDS ORDERED: Morphine PF 10 MG/10 ML SDV EPIDUR ONE (14:13)
[2018-09-19] MEDS ORDERED: Dexamethasone 4 MG/ML 5 ML MDV IVPUSH ONE (14:13)
[2018-09-19] MEDS ORDERED: Oxytocin 10 Units/1 ML SDV IV ONE (14:13)
[2018-09-19] MEDS ORDERED: Lactated Ringers 1,000 ML IV ONE (14:13)
--- NOTE | 2018-09-19 19:28 | DISCH ---
DISCHARGE DATE: 09/19/2018 REASON FOR ADMISSION: 1. Second stage of labor. 2. History of section. DISCHARGE DIAGNOSES: 1. Repeat transverse lower uterine segment section. 2. Anemia. BRIEF HISTORY: This is a 27-year-old female who came in at second stage of labor at 35 weeks and 6 days. She delivered by and did well postoperatively. Hemoglobin 9.8. She had good urine output. She has expressed interest to go home to be with the baby who was transferred to NICU due to respiratory distress. I discharged the patient today and she will use Motrin p.r.n. for pain. Followup is slated for 2 weeks. I spent more than 35 minutes in the discharge of the patient. /[id number] JAMIL/MARIAH
== END 2018-09-19 14:14 | disposition home or self-care (01) | DRG 787 ==
LOC: FB.OBCHECK 07:17 → FB.OB 07:18
PROVIDERS: ADMIT Family Medicine; ATTEND Family Medicine
PROC: 10D00Z1 Extraction of Products of Conception, Low, Open Approach (ICD-10-PCS; principal; 2018-09-18)
PROC: 6A550ZT Pheresis of Cord Blood Stem Cells, Single (ICD-10-PCS; 2018-09-18)
DX: O60.23X0 Term delivery with preterm labor, third trimester, not applicable or unspecified (principal); D62 Acute posthemorrhagic anemia; N85.8 Other specified noninflammatory disorders of uterus; Z3A.35 35 weeks gestation of pregnancy; Z37.0 Single live birth; Z98.891 History of uterine scar from previous surgery; O90.81 Anemia of the puerperium
CPT/HCPCS: 36415; 85025; 86850; 86900; 86901; A9270-GY; J0131; J0690; J1100; J1885; J2270; J2300; J2370; J2590; J3490; J7120

== ENCOUNTER 2021-03-13 13:33 | Emergency (ER) | payer BC, OTHER ==
--- NOTE | 2021-03-13 14:10 | EDM.PDOC ---
ED HPI GENERAL MEDICAL PROBLEM - General Stated Complaint: pelvic pain/L UPPER LEG PAIN Time Seen by Provider: 03/13/21 14:05 Source of Information: Reports: Patient History Limitations: Reports: No Limitations - History of Present Illness INITIAL COMMENTS - FREE TEXT/NARRATIVE: 30-year-old female who reports on 03/10/2021, she began to have pain in her pelvic area (all across her lower pelvic area) and she had some pain that radiated into her lower back with some pain that radiated into her leg. The following day she began to have some vaginal bleeding and it was heavy with clots. She has persisted with the pelvic pain and nasal bleeding but the vaginal bleeding has decreased down to about a normal menstrual period flow. The pain in her left leg and thigh was worse this morning but has somewhat subsided. She has had no fevers or chills. There is been no nausea or vomiting. Her last normal menstrual period was 2 weeks ago and the patient reports that she is trying to get now and is using no control measures. She is currently rating her pain as a 5/10 although it was worse earlier. He has been eating and drinking normally. She reports the pain is a crampy and sore type pain like when she would have a or when she was . No weakness or dizziness. No cough or nasal congestion. No sore throat. Presents to the emergency department via private vehicle with her . There are no other associated signs or symptoms. There are no other modifying factors. Onset: Other (03/10/2021) Duration: Constant Location: Reports: Abdomen, Lower Extremity, Left Quality: Reports: Other (Cramping. 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: Other (see below) (Nothing.) - Related Data Allergies Allergy/AdvReac Type Severity Reaction Status Date / Time scopolamine Allergy Severe Other Verified 09/11/18 13:41 ondansetron [From Zofran] AdvReac Severe Other Verified 10/01/17 17:00 Home Meds: Home Meds Vit 28/Iron Fum/Folic [Theranatal Core Nutrition] 1 each PO DAILY 06/27/18 [History] Past Medical History - Past Health History Medical/Surgical History: Denies Medical/Surgical History HEENT History: Reports: Impaired Vision Other HEENT History: Eyeglasses 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: - Past Surgical History Female Surgical History: Reports: Section (3) Social & Family History - Tobacco Use Tobacco Use Status *Q: Never Tobacco User - Caffeine Use Caffeine Use: Reports: Coffee Caffeine Use Comment: Occasional coffee - Alcohol Use Alcohol Use History: No - Living Situation & Occupation Living situation: Reports: , with Spouse ED ROS GENERAL - Review of Systems Review Of Systems: See Below Constitutional: Denies: Fever, Chills HEENT: Denies: Eye Pain, Throat Pain Respiratory: Denies: Shortness of Breath Cardiovascular: Denies: Chest Pain, Palpitations Endocrine: Reports: Fatigue GI/Abdominal: Reports: Abdominal Pain. Denies: Melena, Nausea, Vomiting : Reports: Irregular Menses. Denies: Dysuria, Flank Pain Musculoskeletal: Reports: Back Pain, Leg Pain Skin: Denies: Diaphoresis, Rash Neurological: Denies: Dizziness, Headache Psychiatric: Denies: Anxiety, Confusion Hematologic/Lymphatic: Denies: Easy Bleeding, Easy Bruising ED EXAM, GI/ABD - Physical Exam Exam: See Below Exam Limited By: No Limitations General Appearance: Alert, WD/WN, No Apparent Distress Eyes: Bilateral: Normal Appearance, EOMI Ears: Normal External Exam, Hearing Grossly Normal Nose: Normal Inspection, Normal Mucosa, No Blood Throat/Mouth: Normal Inspection, Normal Lips, Normal Oropharynx, Normal Voice, No Airway Compromise Head: Atraumatic, Normocephalic Neck: Normal Inspection, Supple, Non-Tender, Full Range of Motion Respiratory/Chest: No Respiratory Distress, Lungs Clear, Normal Breath Sounds, No Accessory Muscle Use, Chest Non-Tender Cardiovascular: Normal Peripheral Pulses, Regular Rate, Rhythm, No Murmur GI/Abdominal Exam: Normal Bowel Sounds, Soft, No Mass, Tender (Tender over her pelvic area diffusely.) Back Exam: Normal Inspection, Full Range of Motion. No: CVA Tenderness (R), CVA Tenderness (L) Extremities: Normal Inspection, Normal Range of Motion, Non-Tender, No Pedal Edema, Normal Capillary Refill Neurological: Alert, Oriented, CN II-XII Intact, Normal Cognition Psychiatric: Normal Affect Skin Exam: Warm, Dry, Intact, Normal Color Course - Vital Signs Last Recorded V/S: Last Vital Signs Temp 36.5 C 03/13/21 13:33 Pulse 76 03/13/21 13:33 Resp 18 03/13/21 13:33 BP 112/69 03/13/21 13:33 Pulse Ox 97 03/13/21 13:33 - Orders/Labs/Meds Orders: Active Orders 24 hr Category Date Time Status Insert Urinary Catheter [OM.PC] ONETIME Care 03/13/21 14:15 Ordered CULTURE URINE [RM] Stat Lab 03/13/21 14:30 Received HCG QUANTITATIVE [CHEM] Stat Lab 03/13/21 15:14 Ordered Labs: Laboratory Tests 03/13/21 03/13/21 Range/Units 14:30 14:30 Urine Color Yellow (YELLOW) Urine Appearance Slightly cloudy (CLEAR) Urine pH 5.0 (5.0-6.5) Ur Specific [place] 1.025 (1.010-1.025) Urine Protein Negative (NEGATIVE) mg/dL Urine Glucose (UA) Normal (NORMAL) mg/dL Urine Ketones 15 H (NEGATIVE) mg/dL Urine Occult Blood Moderate H (NEGATIVE) Urine Nitrite Negative (NEGATIVE) Urine Bilirubin Negative (NEGATIVE) Urine Urobilinogen Normal (NEGATIVE) mg/dL Ur Leukocyte Esterase Negative (NEGATIVE) Urine RBC 0-5 (0-5) Urine WBC 0-5 (0-5) Ur Squamous Epith Cells Few H (NS,R,O) Urine Bacteria Few H (NS) Urine HCG, Qual Positive H (NEGATIVE) - Re-Assessments/Exams Free Text/Narrative Re-Assessment/Exam: 03/13/21 15:18: Urine test was positive. The urinalysis was normal. The patient is remaining hemodynamically stable at present. I have ordered a quantitative hCG. Her blood type is O+. Because of her early , the vaginal bleeding and the pelvic pain, she will need a pelvic ultrasound to 4 potential ectopic . We do not have ultrasound capability at [facility] at this time. She would need to be transferred to a facility with these services available. I did discuss this with the patient and with her . I answered their questions. They have asked that I call and discuss their case with the doctors at [facility] in [place]. 03/13/21 15:30: I discussed the patient's case with Dr. Cheema, ED physician at , and he has agreed to accept the patient in transfer. The quantitative hCG has been drawn and the results are pending at this time. We will forward this information to emergency department when the test is resulted. The patient will be transferred by her to the emergency department at via private vehicle. Departure - Departure Time of Disposition: 15:33 Disposition: DC/Tfer to Acute Hospital 02 Condition: Good (Stable.) Clinical Impression: First trimester bleeding, Pelvic pain during in first trimester, antepartum - Discharge Information Referrals: Pritesh Batista MD [Primary Care Provider] - Additional Instructions: Go directly to the emergency department at for pelvic ultrasound and further cares and treatment as indicated. Do not have anything to eat or drink until cleared by the doctors at . Sepsis Event Note (ED) - Focused Exam Vital Signs: Vital Signs Temp Pulse Resp BP Pulse Ox 03/13/21 13:33 36.5 C 76 18 112/69 97 - My Orders Last 24 Hours: My Active Orders 03/13/21 14:15 Insert Urinary Catheter [OM.PC] ONETIME 03/13/21 14:30 CULTURE URINE [RM] Stat 03/13/21 15:14 HCG QUANTITATIVE [CHEM] Stat - Assessment/Plan Last 24 Hours: My Active Orders 03/13/21 14:15 Insert Urinary Catheter [OM.PC] ONETIME 03/13/21 14:30 CULTURE URINE [RM] Stat 03/13/21 15:14 HCG QUANTITATIVE [CHEM] Stat
== END 2021-03-13 16:00 ==
LOC: FB.ED 13:33
DX: O99.891 Other specified diseases and conditions complicating pregnancy (principal); R10.2 Pelvic and perineal pain; Z88.8 Allergy status to other drugs, medicaments and biological substances; Z3A.00 Weeks of gestation of pregnancy not specified
CPT/HCPCS: 36415; 81001; 81025; 84702; 87086; 99284